=== PATIENT | male | born 1945 | race Caucasian/White ===

== ENCOUNTER → 2016-12-01 | Outpatient (CLI) | payer OTHER, MEDICARE ==
--- NOTE | 2016-12-01 16:56 | DX ---
Chest, PA and Lateral History: Dyspnea, asthma, R05, R06.00 Comparison: November 15, 2009 Findings: Moderately prominent lung volumes and perihilar bronchial wall thickening are stable and co nsistent with underlying asthma. Lungs are clear, without infiltrate or consolidation. Heart size and pulmonary vascularity are normal. There is no adenopathy or mass lesion. There is no pleural effusio n, pneumomediastinum or pneumothorax. Bones are unremarkable for age. Impression: Nothing acute identified. No evidence for pneumonia or atelectasis.
== END ==
LOC: FLAB 11:22
PROVIDERS: ATTEND Allergy & Immunology Allergy
DX: J45.909 Unspecified asthma, uncomplicated (principal)

== ENCOUNTER → 2018-06-15 | Outpatient (CLI) | payer OTHER, MEDICARE | LOC: BMCIMAGING 08:04 | PROVIDERS: ATTEND Orthopaedic Surgery | DX: M17.12 Unilateral primary osteoarthritis, left knee (principal) ==

== ENCOUNTER 2018-06-30 09:51 | Inpatient (IN) | payer OTHER, MEDICARE ==
--- NOTE | 2018-06-30 10:02 | EDPHY ---
H & P Stated Complaint: cp Time Seen by Provider: 06/30/18 09:53 HPI/ROS: CHIEF COMPLAINT: Chest pain HISTORY OF PRESENT ILLNESS: The patient presents the ED with complaints of acute crushing chest pain that began 1 hr prior to arrival while riding an exercise bike. The patient reports associated paresthesias in his right hand and arm. The patient has no prior history of the symptoms. The patient does have a history of COPD. The patient has no history of hypertension, diabetes or hyperlipidemia. The patient currently rates his pressure as a 8/10. He denies any complaints of lower extremity numbness or weakness. He denies any history of fall or trauma. He denies any history of asymmetric calf pain or swelling. REVIEW OF SYSTEMS: A comprehensive 10 point review of systems is otherwise negative aside from elements mentioned in the history of present illness. Source: Patient Exam Limitations: No limitations - Personal History Current Tetanus/Diphtheria Vaccine: Yes Current Tetanus Diphtheria and Acellular Pertussis (TDAP): Yes - Medical/Surgical History Hx Asthma: Yes Hx Chronic Respiratory Disease: No Hx Diabetes: No Hx Cardiac Disease: No Hx Renal Disease: No Hx Cirrhosis: No Hx Alcoholism: No Hx HIV/AIDS: No Hx Splenectomy or Spleen Trauma: No Other PMH: asthma, hypothyroid, L knee surgery - Social History Smoking Status: Never smoked - Physical Exam Exam: General Appearance: Alert, appears uncomfortable Eyes: Pupils equal and round no pallor or injection ENT, Mouth: Mucous membranes moist Respiratory: There are no retractions, lungs are clear to auscultation Cardiovascular: Regular rate and rhythm Gastrointestinal: Abdomen is soft and nontender, no masses, bowel sounds normal Neurological: 5/5 strength noted all 4 extremities Skin: Warm and dry, no rashes Musculoskeletal: Neck is supple nontender Extremities: Brisk 2+ pulses noted in all 4 extremities Psychiatric: Patient is oriented X 3, there is no agitation Constitutional: Initial Vital Signs Temperature (C) 36.6 C 06/30/18 09:55 Heart Rate 68 06/30/18 09:55 Respiratory Rate 16 06/30/18 09:55 Blood Pressure 135/68 H 06/30/18 09:55 O2 Sat (%) 94 06/30/18 09:55 O2 Delivery Mode Room Air Allergies/Adverse Reactions: Penicillins Allergy (Verified 06/30/18 09:54) Home Medications: Medication Instructions Recorded Advair 250/50 (*) 06/30/18 Albuterol 06/30/18 Flonase Nasal Dawn 06/30/18 Levothyroxine 06/30/18 Medical Decision Making - Diagnostics EKG Interpretation: EKG: Complete interpretation has been separately recorded in the [facility] archive. Summary impression: Sinus rhythm, subtle less than [address] segment elevation noted in the inferior and lateral leads. Repeat EKG-ongoing chest pain EKG: Complete interpretation has been separately recorded in the [facility] archive. Summary impression: Patient continues to have subtle less than [address] segment elevation noted in the inferior and lateral leads Imaging Results: Chest x-ray AP: Images reviewed by myself, normal mediastinum, normal heart size. Impression normal chest x-ray ED Course/Re-evaluation: The patient presents to the ED with acute chest pain. His initial EKG has nonspecific changes and does not meet strict criteria for a STEMI. The patient was treated with nitroglycerin, aspirin and morphine. The patient continued to have bandlike chest pressure which was not abated. Emergent consultation was made with Dr. Bennett from Cardiology who evaluated the patient in the emergency department. He will be taken to the cardiac catheterization lab in the setting of refractory chest pain and likely NSTEMI. The patient did have a chest x-ray which demonstrates a grossly normal mediastinum without evidence of cardiomegaly. The patient was taken to the cardiac catheterization lab at 10:20. Differential Diagnosis: Differential diagnosis considered includes acute myocardial infarction, unstable angina, pericarditis, myocarditis, esophageal spasm, pulmonary embolism , aortic dissection Critical Care Time: Critical care time exclusive of procedures and exclusive of the PA's time was 35 minutes, performed by myself, Thaddeus Pruitt MD. The patient presents to the ED with ongoing chest pain refractory to medical management and EKG changes suggestive of NSTEMI. The patient was emergently transferred to the cardiac catheterization lab for further evaluation. He will subsequently be admitted to the intensive care unit under the care of the cardiology service. - Data Points Laboratory Results: Laboratory Results 06/30/18 10:04 06/30/18 06/30/18 06/30/18 10:05 10:04 10:04 WBC 8.72 10^3/uL 10^3/uL (3.80-9.50) RBC 5.05 10^6/uL 10^6/uL (4.40-6.38) Hgb 15.5 g/dL g/dL (13.7-17.5) Hct 45.8 % % (40.0-51.0) MCV 90.7 fL fL (81.5-99.8) MCH 30.7 pg pg (27.9-34.1) MCHC 33.8 g/dL g/dL (32.4-36.7) RDW 12.5 % % (11.5-15.2) Plt Count 222 10^3/uL 10^3/uL (150-400) MPV 10.4 fL fL (8.7-11.7) Neut % (Auto) 76.5 % H % (39.3-74.2) Lymph % (Auto) 11.8 % L % (15.0-45.0) [place] % (Auto) 9.7 % % (4.5-13.0) Eos % (Auto) 1.3 % % (0.6-7.6) Baso % (Auto) 0.2 % L % (0.3-1.7) Nucleat RBC Rel Count 0.0 % % (0.0-0.2) Absolute Neuts (auto) 6.67 10^3/uL H 10^3/uL (1.70-6.50) Absolute Lymphs (auto) 1.03 10^3/uL 10^3/uL (1.00-3.00) Absolute Monos (auto) 0.85 10^3/uL H 10^3/uL (0.30-0.80) Absolute Eos (auto) 0.11 10^3/uL 10^3/uL (0.03-0.40) Absolute Basos (auto) 0.02 10^3/uL 10^3/uL (0.02-0.10) Absolute Nucleated RBC 0.00 10^3/uL 10^3/uL (0-0.01) Immature Gran % 0.5 % % (0.0-1.1) Immature Gran # 0.04 10^3/uL 10^3/uL (0.00-0.10) Sodium Pending Potassium Pending Chloride Pending Carbon Dioxide Pending Anion Gap Pending BUN Pending Creatinine Pending Estimated GFR Pending Glucose Pending Calcium Pending POC Troponin I 0.03 ng/mL ng/mL (0.00-0.08) Medications Given: Nitroglycerin (Nitrostat) 0.4 mg SL Q5M PRN PRN Reason: Chest Pain Last Admin: 06/30/18 10:10 Dose: 0.4 mg Discontinued Medications Aspirin (Aspirin) 324 mg PO EDNOW ONE Stop: 06/30/18 10:13 Last Admin: 06/30/18 10:18 Dose: 324 mg Point of Care Test Results: Chemistry 06/30/18 10:05 POC Troponin I 0.03 ng/mL ng/mL (0.00-0.08) Departure - Departure Disposition: [facility] Inpatient Acute Clinical Impression: Acute coronary syndrome Condition: Critical Referrals: Samuel Cruz MD [Primary Care Provider] - As per Instructions
[2018-06-30] MEDS ORDERED: NITROGLYCERIN 0.4 MG BTL SL ONE (10:06)
[2018-06-30] MEDS ORDERED: ASPIRIN 81 MG CHEWABLE TAB ONE (10:07)
[2018-06-30] MEDS ORDERED: ASPIRIN 81 MG CHEWABLE TAB PO ONE (10:12)
[2018-06-30] MEDS ORDERED: NITROGLYCERIN 0.4 MG BTL SL PRN (10:12)
--- NOTE | 2018-06-30 10:21 | CPEKG ---
Test Reason : OPEN Blood Pressure : / mmHG Vent. Rate : 062 BPM Atrial Rate : 063 BPM P-R Int : 203 ms QRS Dur : 093 ms QT Int : 411 ms P-R-T Axes : 036 005 071 degrees QTc Int : 418 ms Sinus rhythm Inferior infarct, acute (LCx) Lateral leads are also involved Confirmed by Thaddeus Pruitt ([id number]) on 06/30/2018 10:21:20 AM Referred By: Confirmed By:Thaddeus Pruitt
[2018-06-30 10:25] LABS: PLATELET COUNT 222 10^3/uL (150-400)
[2018-06-30] MEDS ORDERED: LIDOCAINE 1% 300 MG/30 ML SDV ONE (10:26)
[2018-06-30] MEDS ORDERED: fentaNYL 100 MCG/2 ML INJ ONE (10:26)
[2018-06-30] MEDS ORDERED: MIDAZOLAM 2 MG/2 ML VIAL ONE (10:26)
[2018-06-30] MEDS ORDERED: IOPAMIDOL (ISOVUE-370) 150 ML BTL IV ONE (10:27)
[2018-06-30] MEDS ORDERED: EPINEPHrine 1 MG/10 ML SYR IVP ONE (10:30)
[2018-06-30] MEDS ORDERED: ATROPINE SULFATE 1 MG/10 ML SYR ONE (10:30)
[2018-06-30] MEDS ORDERED: BIVALIRUDIN 250 MG/5 ML VIAL IV ONE (10:30)
[2018-06-30] MEDS ORDERED: NITROGLYCERIN 1,500 MCG/15 ML VIAL MISC ONE (10:31)
[2018-06-30] MEDS ORDERED: DOPamine/DEXTROSE 400 MG/250 ML BAG IV ONE (10:40)
[2018-06-30] MEDS ORDERED: EPTIFIBATIDE 200 MG/100 ML BOTTLE IV ONE (10:53)
[2018-06-30] MEDS ORDERED: CLOPIDOGREL BISULFATE 75 MG TAB ONE (11:21)
[2018-06-30] MEDS ORDERED: LORazepam 2 MG/ML INJ IVP PRN (11:33)
[2018-06-30] MEDS ORDERED: CLOPIDOGREL BISULFATE 75 MG TAB PO ONE (11:33)
[2018-06-30] MEDS ORDERED: TEMAZEPAM 15 MG CAP PO PRN (11:33)
[2018-06-30] MEDS ORDERED: ONDANSETRON 4 MG/2 ML VIAL IVP PRN (11:33)
[2018-06-30] MEDS ORDERED: ATROPINE SULFATE 1 MG/10 ML SYR IVP PRN (11:33)
--- NOTE | 2018-06-30 11:45 | CPIP ---
DATE OF PROCEDURE: 06/30/2018 PROCEDURE: 1. Coronary angiography. 2. Left ventriculography. 3. Thrombectomy of right coronary artery using Pronto catheter. 4. Stenting of right coronary artery using Xience drug-eluting stent. INDICATION: Acute inferior ST-segment elevation myocardial infarction. ACCESS: Patient was prepped and draped in sterile fashion. Lidocaine 1% was used to anesthetize the right inguinal region. A 6-English introducer sheath was placed selectively in the right common femo ral artery via modified Seldinger technique. CORONARY ANGIOGRAPHY: A 6-English JL4 was advanced to the left main coronary artery and images obtain ed. The left main coronary artery bifurcated into an LAD and circumflex coronary arteries. The left main coronary artery appeared normal. The left anterior descending coronary artery had a 40% to 50% stenosis in the mid vessel at the take-off of the 2nd and 3rd diagonal arteries making this a trifur cation lesion. The 2nd diagonal artery had an ostial 70% stenosis present. The second diagonal zi ry was small to moderate in size. The circumflex coronary artery was a large vessel. The circumflex coronary artery is nondominant. Circumflex coronary artery had an ostial 60% to 70% stenosis presen t. A 6-English JR4 was advanced to the right coronary artery and images obtained. The right coronary artery was dominant. The right coronary artery had a 99% thrombotic occlusion in the midvessel. LEFT VENTRICULOGRAPHY: A 6-English pigtail catheter was advanced in the left ventricle and images obt ained. Left ventricle was normal in size with normal left ventricular systolic function. Estimated ejection fraction is 55%. The inferior wall appeared to be mildly hypokinetic. PERCUTANEOUS CORONARY INTERVENTION OF THE RIGHT CORONARY ARTERY: A 6-English JR4 was advanced to the right coronary artery and images obtained. Angiography confirmed the presence of a 99% thrombotic oc clusion in the mid vessel. A Luge wire was placed in the distal vessel and position verified by augustine ography. A Pronto catheter was then used to perform thrombectomy. Followup angiography demonstrated MADELYN-3 flow with residual thrombus burden as well as a 50% stenosis present. A 3.0 x 24 Xience drug -eluting stent was then placed across the lesion and deployed. Followup angiography demonstrated MEGAN I-3 flow with no residual stenosis. There is incomplete expansion in the proximal portion of the darlin nt. The stent was postdilated with a 3.5 x 20 Quantum [place] balloon. Followup angiography demons trated MADELYN-3 flow with no residual stenosis. COMPLICATIONS: None. CONCLUSIONS: 1. Moderate coronary artery disease with a 99% thrombotic stenosis of the mid right coronary artery. 2. Normal left ventricular systolic function with inferior hypokinesis. 3. Status post thrombectomy and stenting of right coronary artery using Xience drug-eluting stent. /[id number]/MODL
--- NOTE | 2018-06-30 13:20 | CPEKG ---
Test Reason : OPEN Blood Pressure : / mmHG Vent. Rate : 067 BPM Atrial Rate : 067 BPM P-R Int : 201 ms QRS Dur : 087 ms QT Int : 394 ms P-R-T Axes : 007 -09 069 degrees QTc Int : 416 ms Sinus rhythm Inferior infarct, acute (LCx) ST elevation, consider anterolateral injury Confirmed by Thaddeus Pruitt ([id number]) on 06/30/2018 1:19:44 PM Referred By: Confirmed By:Thaddeus Pruitt
--- NOTE | 2018-06-30 14:18 | CPEKG ---
Test Reason : OPEN Blood Pressure : / mmHG Vent. Rate : 043 BPM Atrial Rate : 043 BPM P-R Int : 261 ms QRS Dur : 091 ms QT Int : 465 ms P-R-T Axes : 024 -05 069 degrees QTc Int : 394 ms Sinus bradycardia Borderline prolonged VA interval Low voltage, extremity leads Abnormal R-wave progression, early transition ST elevation, consider inferior injury Confirmed by Anmol Parham ([id number]) on 06/30/2018 2:18:03 PM Referred By: Confirmed By:Anmol Parham
[2018-06-30 17:51] LABS: CREATINE KINASE 124 IU/L (0-224)
[2018-07-01] MEDS: LIOTHYRONINE SODIUM 25 MCG TAB PO SCH ×2 (05:53→06:09)
[2018-07-01] MEDS: LEVOTHYROXINE 112 MCG TAB PO SCH (05:54)
[2018-07-01 06:05] LABS: PLATELET COUNT 177 10^3/uL (150-400)
[2018-07-01 06:15] LABS: CREATINE KINASE 259 IU/L (0-224)
--- NOTE | 2018-07-01 08:49 | PDCARPN ---
Cardiology Progress Note Chief Complaint: CP Assessment/Plan: Assessment: Andre is a 72 y/o M who presented to the hospital as a cardiac alert with acute inferior STEMI. He is s/p thrombectomy and stenting of the RCA. He complained of mild chest pressure throughout the night but is currently CP free. He also had some groin discomfort but denies any groin pain at this time. He had a asymptomatic AIVR last night. He denies any history of HTN, HLP, DM, or tobacco use. He developed chest pressure post exercise yesterday. Plan: 1. Acute inferior STEMI s/p thrombectomy and stenting of the RCA. He will need to continue DAP therapy for 1 year. He was started on Lipitor yesterday and a BB will be added today. If he tolerates Metoprolol a ZIA-I can be added tomorrow. 07/01/18 08:40 07/01/18 09:00 Subjective: He is complaining of mild chest pressure throughout the night but is chest pain free at this time. Objective: Vital Signs (8 Hrs) Temp Pulse Resp BP Pulse Ox 07/01/18 08:00 36.6 C 52 L 12 114/64 97 07/01/18 06:00 65 14 122/68 H 96 07/01/18 04:30 51 L 16 130/76 H 97 07/01/18 02:00 55 L 16 111/58 L 97 Intake/Output (24 Hrs) 06/30/18 07/01/18 07/02/18 05:59 05:59 05:59 Intake Total 1034 Balance 1034 Intake: Oral (ml) 1000 IV Intake (ml) 34 Other: Weight 74.843 kg Number of Voids Toilet 3 Result Diagrams: 07/01/18 05:50 07/01/18 05:50 Cardiac Labs: Cardiac Lab Results (72 Hrs) 07/01/18 06/30/18 05:50 17:30 CK-MB (CK-2) Fraction 17.50 H Troponin I 5.900 H 1.420 H Telemetry: AIVR last night, asymptomatic. - Physical Exam Constitutional: WDWN, healthy appearing Cardiovascular: regular rate and rhythm, no murmurs, no rubs, no gallops Peripheral Pulses: 2+: femoral (R) (no infection, mild ecchymosis), dorsalis- pedis (R), dorsalis-pedis (L) Skin: no edema Neurologic: AAOx3 ICD10 Worksheet Patient Problems: Problems Problem Status Onset Acute coronary syndrome Acute
--- NOTE | 2018-07-01 09:11 | PDMN ---
Medical Necessity Medical necessity: [facility] M230 AR: 72 y/o w/ acute AR (inferior STEMI), s/p thrombectomy and stenting of the RCA
[2018-07-01] MEDS: CLOPIDOGREL BISULFATE 75 MG TAB PO SCH (09:24)
[2018-07-01] MEDS: ATORVASTATIN CALCIUM 20 MG TAB PO SCH (09:24)
[2018-07-01] MEDS: ASPIRIN EC 325 MG TAB PO SCH (09:24)
[2018-07-01] MEDS: METOPROLOL TARTRATE 25 MG TAB PO SCH ×2 (09:25→21:58)
--- NOTE | 2018-07-01 10:01 | ASMTCMCOM ---
CM Note CM Note Notes: Pt was brought to the hospital with chest pain that occurred while riding an exercise bike. He was taken to the sugar laboratory assistant and stented. No therapies ordered, CM w/f for dc plan. He is although he and seem to have separate addresses. DC Plan: TBD Date Signed: 07/01/2018 10:00 AM Electronically Signed By:Cecily Agrawal RN
[2018-07-01] MEDS: FLUTICASONE NASAL 120 SPRAYS/16 GM MDI EACHNARE SCH (12:13)
--- NOTE | 2018-07-01 16:05 | CPEKG ---
Test Reason : OPEN Blood Pressure : / mmHG Vent. Rate : 053 BPM Atrial Rate : 053 BPM P-R Int : 206 ms QRS Dur : 073 ms QT Int : 418 ms P-R-T Axes : 091 -01 042 degrees QTc Int : 393 ms Sinus rhythm Low voltage, extremity leads Confirmed by Amish Null ([id number]) on 07/01/2018 4:04:45 PM Referred By: Confirmed By:Amish Null
[2018-07-02] MEDS: LIOTHYRONINE SODIUM 25 MCG TAB PO SCH (07:53)
[2018-07-02] MEDS: LEVOTHYROXINE 112 MCG TAB PO SCH (07:53)
[2018-07-02 07:58] VITALS: BP 112/83
[2018-07-02] MEDS: ATORVASTATIN CALCIUM 20 MG TAB PO SCH (08:52)
[2018-07-02] MEDS: CLOPIDOGREL BISULFATE 75 MG TAB PO SCH (08:52)
[2018-07-02] MEDS: ASPIRIN EC 325 MG TAB PO SCH (08:52)
[2018-07-02] MEDS: METOPROLOL TARTRATE 25 MG TAB PO SCH (08:53)
[2018-07-02] MEDS: FLUTICASONE NASAL 120 SPRAYS/16 GM MDI EACHNARE SCH (08:53)
--- NOTE | 2018-07-02 09:35 | ASDISCHSUM ---
Discharge Information Plan Status:Home with No Needs Medically Cleared to Leave:07/02/2018 Discharge Date:07/02/2018 CM D/C Disposition:Home, Routine, Self-Care ADT D/C Disposition: Projected Discharge Date:07/02/2018 11:00 AM Transportation at D/C:Friend Discharge Delay Reason: Follow-Up Date:07/02/2018 11:00 AM Discharge Slot: Final Diagnosis:CP Placement Information Patient Contact Information Contact Name:DANIELA Relationship: Address:[address] City:[place] Alternate Phone: State/Zip Code:[place] [address] Email: Financial Information Financial Class:Medicare Primary Plan Desc:MEDICARE INPATIENT Primary Plan Number:[id number] Secondary Plan Desc:[employer]/MDR SUPPLEMENT Secondary Plan Number:[id number] Assessment Information LACE LACE Length of stay for Answers: 2 days current admission Acuity / Level of Answers: Yes Care: Did the patient have an inpatient admission? Comorbidities - select Answers: Chronic pulmonary disease all that apply Other Notes: Asthma; Hypothyroid, CP # of Emergency department Answers: 1-2 visits in the last 6 months Score: 9 Date Signed: 07/02/2018 09:32 AM Electronically Signed By:Kala Cox LCSW [facility] CM Progress Note CM Note CM Note Notes: Pt was brought to the hospital with chest pain that occurred while riding an exercise bike. He was taken to the laboratory assistant and stented. No therapies ordered, CM w/f for dc plan. He is although he and seem to have separate addresses. DC Plan: TBD Date Signed: 07/01/2018 10:00 AM Electronically Signed By:Cecily Agrawal RN Case Management Discharge Plan Note Case Management Discharge Discharge Order Complete? Answers: Yes Patient to Obtain Answers: Independently Medications Transportation Arranged Answers: Family/Friends Transport will Pick (Date 07/02/2018 11:00 AM & Time) Discharge Comments Notes: Patient has been discharged. No discharge needs. Date Signed: 07/02/2018 09:34 AM Electronically Signed By:Kala Cox LCSW Intervention Information
--- NOTE | 2018-07-02 09:51 | GDS ---
DISCHARGE DIAGNOSES: 1. Coronary artery disease. Patient presented with an acute inferior ST-segment elevation myocardia l infarction. He was taken to the cardiac catheterization laboratory. Coronary angiography demonstr ated a 99% stenosis of his right coronary artery. The patient was treated with a percutaneous gardner ry intervention of his right coronary artery using Xience drug-eluting stent. His peak CPK was 259. His LVEF post procedure was 55% with subtle inferior hypokinesis. Patient's postprocedural course w as relatively uncomplicated. The patient denied further episodes of chest pain. He did not have a c ongestive heart failure or significant arrhythmias. Patient will be discharged on medical management using aspirin, Plavix, metoprolol, and atorvastatin. ZIA inhibitor was not started given low blood pressure. 2. Hypertension. The patient denies a previous history of hypertension. His blood pressure was wel l controlled during his hospitalization on metoprolol 12.5 mg twice daily. This medication will be c ontinued. 3. Hyperlipidemia. Patient's LDL cholesterol was 88 prior to his myocardial infarction. Patient wa s started on atorvastatin 20 mg daily. He will need a repeat FLP and LFTs in approximately 6 months period of time. HOSPITAL COURSE: The patient is a 72-year-old gentleman with limited cardiac risk factors who presen frannie with an acute inferior ST-segment elevation myocardial infarction on 06/30/2018. He was immediat emily taken to the cardiac catheterization laboratory where is found to have a 99% stenosis of his righ t coronary artery. Patient was treated with percutaneous coronary intervention of his right coronary artery using a 3.5 x 24 Xience drug-eluting stent. Patient's postprocedural course was relatively u ncomplicated, specifically he did not have recurrent episodes of angina, heart failure, or significan t arrhythmias on telemetry monitoring. Patient was started on appropriate medical management with as pirin, Plavix, metoprolol and atorvastatin. DISCHARGE MEDICATIONS: Please see medicine reconciliation form. PHYSICAL EXAMINATION: GENERAL: At the time of discharge generally, patient is resting comfortably i n bed. He did not appear to be in acute distress. VITAL SIGNS: Temperature afebrile, pulse is 57, blood pressure 112/83, SaO2 97% on room air. HEENT: Normocephalic, atraumatic. Extraocular muscles intact. NECK: No JVD. No bruits. LUNGS: Clear to auscultation bilaterally. CARDIOVASCULAR: Re gular rate and rhythm. S1, S2. No murmurs, rubs, or gallops appreciated. ABDOMEN: Soft, nontender . Normoactive bowel sounds. EXTREMITIES: Positive ecchymosis. No hematoma right inguinal access s ite. 2+ dorsalis pedis pulse. No edema. NEURO: Patient awake, alert, and oriented x3. LABORATORY DATA: At the time of discharge: Sodium 137, potassium 3.9, chloride 107, CO2 24, BUN 16, creatinine 1.0. White blood cell count 7.57, hemoglobin 13.5, hematocrit 39.1, platelet count 177. DISCHARGE INSTRUCTIONS: 1. Patient should call for groin complications as outlined at the time of discharge. 2. Patient should follow up with Dr. Bennett of [facility] in approximately 2 weeks' period of ubaldo Aguirre #: [id number]/[id number]
== END 2018-07-02 09:45 | disposition home or self-care (01) | DRG 247 ==
LOC: F2N 10:42
PROVIDERS: ADMIT Internal Medicine Cardiovascular Disease; ATTEND Internal Medicine Cardiovascular Disease
PROC: B2151ZZ Fluoroscopy of Left Heart using Low Osmolar Contrast (ICD-10-PCS; principal; 2018-06-30)
PROC: 4A023N7 Measurement of Cardiac Sampling and Pressure, Left Heart, Percutaneous Approach (ICD-10-PCS; principal; 2018-06-30)
PROC: 02C03ZZ Extirpation of Matter from Coronary Artery, One Artery, Percutaneous Approach (ICD-10-PCS; principal; 2018-06-30)
PROC: B2111ZZ Fluoroscopy of Multiple Coronary Arteries using Low Osmolar Contrast (ICD-10-PCS; principal; 2018-06-30)
PROC: 027034Z Dilation of Coronary Artery, One Artery with Drug-eluting Intraluminal Device, Percutaneous Approach (ICD-10-PCS; principal; 2018-06-30)
DX: I21.19 ST elevation (STEMI) myocardial infarction involving other coronary artery of inferior wall (principal); I25.10 Atherosclerotic heart disease of native coronary artery without angina pectoris; E03.9 Hypothyroidism, unspecified; J44.9 Chronic obstructive pulmonary disease, unspecified; E78.5 Hyperlipidemia, unspecified; J45.909 Unspecified asthma, uncomplicated
CPT/HCPCS: 84484-PO; C1725; C1757; C1769; C1874; C1887; C9606; J0461; J0583; J1265; J1327; J1644; J2250; J3010; Q9967